=== PATIENT | male | born 1940 ===

== ENCOUNTER 2016-11-18 21:20 | Inpatient (IN) | payer MEDICARE ==
[2016-11-18] MEDS ORDERED: Sodium Chloride 0.9% 1,000 ML IV ONE (23:01)
[2016-11-19 00:38] LABS: RBC URINE 127 /hpf (0-3); URINE BACTERIA MANY (<OCC); URINE BILIRUBIN NEGATIVE (NEGATIVE); URINE BLOOD 3+ (NEGATIVE); URINE COLOR Yellow (YELLOW); URINE GLUCOSE (UA) NORMAL (Normal); URINE KETONE NEGATIVE (NEGATIVE); URINE LEUKOCYTE ESTERASE 3+ Leu/uL (Negative); URINE PROTEIN 2+ mg/dL (NEGATIVE); URINE UROBILINOGEN NORMAL mg/dL (0.2-1.0); WBC URINE 317 /hpf (0-5)
[2016-11-19 01:11] LABS: BASO # 0.1 K/uL (0.0-0.2); BASO % 1.2 % (0.0-2.0); EOS # 0.3 K/uL (0.0-0.7); EOS % 3.1 % (0.0-4.0); HEMATOCRIT 27.3 % (35.0-51.0); LYMPH # 2.1 K/uL (1.0-4.3); LYMPH % 19.4 % (20.0-40.0); MEAN CELL VOLUME 82.7 fL (80.0-94.0); MEAN CORPUSCULAR HEMOGLOBIN 27.2 pg (27.0-31.0); MEAN CORPUSCULAR HGB CONC 32.8 g/dL (33.0-37.0); MEAN PLATELET VOLUME 7.1 fL (7.2-11.7); MONO # 0.7 K/uL (0.0-0.8); MONO % 6.5 % (0.0-10.0); RED CELL DISTRIBUTION WIDTH 14.2 % (11.5-14.5); WHITE BLOOD COUNT 10.7 K/uL (4.8-10.8)
[2016-11-19 01:28] LABS: POTASSIUM 4.3 mmol/L (3.6-5.2)
[2016-11-19 01:31] LABS: ALB/GLOB RATIO 0.7 (1.0-2.1); BILIRUBIN,TOTAL 0.5 mg/dL (0.2-1.3); CALCIUM 8.2 mg/dl (8.6-10.4); TOTAL PROTEIN 7.1 g/dL (6.3-8.3)
[2016-11-19] MEDS ORDERED: cefTRIAXone IV 1 gm in Dextros 50 ML IVPB STA (02:20)
[2016-11-19] MEDS ORDERED: cefTRIAXone IV 1 gm in Dextros 50 ML IVPB ONE (02:41)
--- NOTE | 2016-11-19 03:30 | C.PDOC ---
History Of Present Illness Pt had urinary retention in [place] and suprapubic catheter was placed. Pt has been having fevers according to family. He is demented and tries to pull out the catheter. Time Seen by Provider: 11/18/16 22:49 Chief Complaint (Nursing): Male Genitourinary History Per: Patient, Family History/Exam Limitations: clinical condition, language barrier, other (Dementia) Onset/Duration Of Symptoms: Days (about 1 week) Current Symptoms Are (Timing): Still Present Severity: Moderate Quality Of Discomfort: Unable To Describe Associated Symptoms: Fever, Urinary Symptoms Alleviating Factors: None Recent travel outside of the [place]: Yes Additional History Per: Prior Records Past Medical History Reviewed: Historical Data, Nursing Documentation, Vital Signs Vital Signs: Last Vital Signs Temp 98.3 F 11/18/16 21:28 Pulse 90 11/18/16 21:28 Resp 18 11/18/16 21:28 BP 113/70 11/18/16 21:28 Pulse Ox 98 11/18/16 21:28 - Medical History PMH: Alzheimer's Disease, Benign Prostatic Hyperplasia Other Surgeries: Suprapubic catheter. Family History: States: Unknown Family Hx - Social History Hx Alcohol Use: No Hx Substance Use: No - Immunization History Hx Tetanus Toxoid Vaccination: No Hx Influenza Vaccination: No Hx Pneumococcal Vaccination: No Review Of Systems Review Of Systems: ROS cannot be obtained secondary to pt's inabilty to answer questions. Physical Exam - Physical Exam Appears: Agitated, Confused Skin: Normal Color, Warm, Dry Head: Atraumatic, Normacephalic Eye(s): bilateral: PERRL Neck: Normal ROM, Supple Cardiovascular: Rhythm Regular Respiratory: Normal Breath Sounds, No Accessory Muscle Use Gastrointestinal/Abdominal: Soft, No Distention, Other (Suprapubic catheter in place) Male Genital: No Testicular Swelling, No Scrotal Swelling Extremity: Normal ROM Neurological/Psych: Inappropriate Response To Command, Other (Moving all extremities) ED Course And Treatment - Laboratory Results Result Diagrams: 11/19/16 01:08 11/19/16 01:08 Lab Interpretation: Abnormal Interpretation Of Abnormal: UTI O2 Sat by Pulse Oximetry: 98 Pulse Ox Interpretation: Normal Progress Note: Pt would not let us evaluate or treat him due to his dementia. Pt had to be sedated in order to be jeff to evaluate and treat him. Progress - Interventions Interventions:: Observation, Intravenous fluid - Medications Administered Intravenous: Other (Abx) - Data Reviewed Data Reviewed: Lab, Old records - Patient Status Patient status: Partially improved - Continuity of Care Discussed patient case with:: Patient, Family-HIPPA compliant, ED Nurse, On- call PMD-pt unassigned - Patient Plan Patient Plan: Admission Disposition Discussed With : Fareed Kaufman Comment: He accepted pt on hospitalist service. Doctor Will See Patient In The: Hospital Counseled Patient/Family Regarding: Studies Performed, Diagnosis - Disposition Disposition: HOSPITALIZED Disposition Time: 03:31 Condition: FAIR - Clinical Impression Clinical Impression: Complicated urinary tract infection, Dementia
--- NOTE | 2016-11-19 04:49 | CP.PCM.HP ---
History of Present Illness - History of Present Illness History of Present Illness: CC: Urinary retention HPI: Patient is a 76 year old male, with PMHx of Alzheimer's Disease and urinary retention, presents to the emergency department with his family for worsening dementia and urinary retention. Pt is confused at baseline according to family, and they provided the history. Patient was living with family in the [facility] [place]. He saw a physician for worsening retention, who placed a suprapubic catheter one week ago, as cabrera catheter could not be inserted. Due to pts dementia, he continually attempted to pull the catheter out. The physician in the [place], informed the family that if the pt removed the catheter "the patient would ." Because of this the family began to tie the patient's arms to his bed, gave Haldol nightly, and booked the first flight [place] the [place]. Family also reports "the patient felt warm at home" but did not measure temperature. The family denies problem with drainage of catheter, but the note color of urine has darkened over the last few days. They deny appearance of armando blood at any point. ROS unobtainable due to pts dementia. PMHx: Alzheimer's disease, Urinary retention PSHx: unknown Meds: Quetiapine fumarate, Haldol, Cefazolin, Omeprazole, Lactulose Allergies: ASA Fam Hx: unknown Present on Admission - Present on Admission Any Indicators Present on Admission: No Review of Systems - Review of Systems Systems not reviewed;Unavailable: Language Barrier Review of Systems: Pt demented unable to ask ROS Past Patient History - Past Social History Smoking Status: Former Smoker - NEUROLOGICAL Hx Alzheimer's Disease: Yes - GENITOURINARY/GYNECOLOGICAL Other/Comment: Urethral Constriction, Urinary retention - PSYCHIATRIC Hx Substance Use: No - SURGICAL HISTORY Hx Surgeries: No Meds Allergies/Adverse Reactions: Allergies Allergy/AdvReac Type Severity Reaction Status Date / Time aspirin Allergy Verified 11/18/16 21:32 Physical Exam - Constitutional Appears: Agitated, Confused - Head Exam Head Exam: ATRAUMATIC, NORMOCEPHALIC - Eye Exam Eye Exam: EOMI Pupil Exam: PERRL - ENT Exam ENT Exam: Mucous Membranes Moist - Neck Exam Neck exam: Positive for: Normal Inspection - Respiratory Exam Respiratory Exam: Clear to Auscultation Bilateral. absent: Accessory Muscle Use - Cardiovascular Exam Cardiovascular Exam: REGULAR RHYTHM, +S1, +S2 - GI/Abdominal Exam GI & Abdominal Exam: Normal Bowel Sounds, Soft - Exam Exam: NORMAL INSPECTION. absent: Scrotal Swelling, Testicular Tenderness Additional comments: suprapubic catheter placed in DR - Extremities Exam Extremities exam: Positive for: normal inspection. Negative for: pedal edema Additional comments: can move all extremities - Neurological Exam Neurological exam: Alert, Altered - Psychiatric Exam Psychiatric exam: Normal Affect - Skin Skin Exam: Normal Color, Warm Results - Vital Signs Recent Vital Signs: Last Vital Signs Temp 98.3 F 11/18/16 21:28 Pulse 90 11/18/16 21:28 Resp 18 11/18/16 21:28 BP 113/70 11/18/16 21:28 Pulse Ox 98 11/19/16 03:32 - Labs Result Diagrams: 11/19/16 01:08 11/19/16 01:08 Assessment & Plan - Assessment and Plan (Free Text) Assessment: Complicated UTI Hx of urinary retention Suprapubic catheter placed in [facility] Urology consult: Dr. Dunlap, help appreciated - f.u reccs UA: 2+ protein, 3+ blood, LE: 3+, WBC 317, RBC 127, Bacteria Many Rocephin 1gm IV Daily Alzheimer's Disease Family reports baseline is confused Not oriented to person/place/time Seroquel 50mg PO BID f/u B12, TSH, free T4 Psych consult: Dr. Cuenca, help appreciated - f/u reccs Anemia H/H: 05/25.3 f/u AM labs Prophylaxis SCDs Heparin 5000u Q8H Protonix 40mg IV daily
[2016-11-19 08:35] LABS: THYROID STIMULATING HORMONE 2.32 mIU/L (0.46-4.68)
[2016-11-19] MEDS: cefTRIAXone IV 1 gm in Dextros 50 ML IVPB SCH (10:57)
[2016-11-19] MEDS: QUEtiapine 50 mg XR Tab PO SCH ×2 (11:10→18:00)
--- NOTE | 2016-11-19 16:56 | PCM.PSYCH ---
Initial Psychiatric Evaluation - Initial Psychiatric Evaluation Type of Admission: Voluntary Legal Status: Capacity Chief Complaint (in patient's own words): 'amy' History of Present Illness and Precipitating Events: This is a 76 years old male, who lives with his , and currently unemployed, was escorted to the ED with irritable, agitated and disorganized behavior. Today patient was consulted because of Alzheimer's dementia. As per the staff, patient remained demented, delusional and disorganized. As per the patient has a long history of Alzheimer's dementia. Since few months he has been getting worse. He has stopped taking, he does not recognize any family members and he does not eat. As per the , he is not ambulatory and was refusing to urinate, she got concerned and escorted him to the hospital to get help. During evaluation patient remained delusional, demented and forgetful. He stares but does not speak. As per the staff he was very agitated, irritable and physically aggressive. He was pulling out the catheter and IV lines so they put soft gloves on his hands and medicated him. Past medical history Current Medications: Active Medications Generic Name Dose Route Start Last Admin Trade Name Freq PRN Reason Stop Dose Admin Heparin Sodium (Porcine) 5,000 units 11/19/16 06:00 11/19/16 14:25 Heparin SC 5,000 units Q8 [facility] Administration Ceftriaxone Sodium 50 mls @ 100 mls/hr 11/19/16 10:00 11/19/16 10:57 Rocephin Iv 1 Gm Duplex IVPB 100 mls/hr DAILY [facility] Administration Influenza Virus Vaccine 45 mcg 11/21/16 10:00 Afluria IM 11/21/16 10:01 .ONCE ONE Lorazepam 1 mg 11/19/16 10:33 11/19/16 11:10 Ativan IVP 1 mg Q2H PRN Administration Agitation Pantoprazole Sodium 40 mg 11/19/16 10:00 11/19/16 10:57 Protonix Inj IVP 40 mg DAILY [facility] Administration Pneumococcal Polyvalent Vaccine 0.5 ml 11/21/16 10:00 Pneumovax 23 Vaccine IM 11/21/16 10:01 .ONCE ONE Quetiapine Fumarate 50 mg 11/19/16 10:00 11/19/16 11:10 Seroquel Xr PO 50 mg BID [facility] Administration Past Psychiatric History - Past Psychiatric History Previous Treatment History: None Pertinent Medical Hx (Current Medical&Sleep Prob, Allergies): Allergies Allergy/AdvReac Type Severity Reaction Status Date / Time aspirin Allergy Verified 11/18/16 21:32 Haldol 10 drop PO BID 11/18/16 Lactulose 30 ml PO Q12H 11/18/16 Omeprazole 40 mg PO DAILY 11/18/16 Quetiapine Fumarate [Quetiapine Fumarate ER] 50 mg PO BID 11/18/16 ceFAZolin [Ancef] 500 mg PO Q8H 11/18/16 Review of Systems - Review of Systems All systems: reviewed and no additional remarkable complaints except - Psychiatric Psychiatric: Anxiety, Irritability, Paranoia Mental Status Examination - Personal Presentation Personal Presentation: Looks older than stated age - Affect Affect: Broad - Motor Activity Motor Activity: Psychomotor Agitation - Reliability in Providing Information Reliability in Providing Information: Poor, due to cognitve impairment - Speech Speech: Disorganized - Mood Mood: Anxious - Formal Thought Process Formal Thought Process: Loosening of associations - Hallucinations/Delusions Delusions: Persecution - Obsessions/Compulsions Obsessions: No Compulsions: No - Cognitive Functions Orientation: Person Sensorium: Other (Demented) Attention/Concentration: Easily distracted Estimate of Intelligence: Below average Judgement: Imparied, as evidence by: Poor judgement, Imparied, as evidence by: Lack of insight into illness - Risk Risk: Diminished functioning - Strength & Assets Inventory Strength & Assets Inventory: Family support DSM 5 DX - DSM 5 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 Start Seroquel 50 mg by mouth twice a day Ativan 0.5 mg by mouth every 6 hours when necessary Benadryl 25 mg by mouth every 6 hours when necessary - Smoking Cessation Smoking Cessation Initiated: No
--- NOTE | 2016-11-19 21:26 | CP.PCM.PN ---
<Kathleen Edwards - Last Filed: 11/19/16 21:24> Subjective - Date & Time of Evaluation Date of Evaluation: 11/19/16 Time of Evaluation: 10:45 - Subjective Subjective: Internal medicine progress note for Dr. Chaudhry- Kathleen Edwards, PGY-1 Pt S & E at bedside. Spouse at bedside Pt agitated, attempting to pull off clothing/suprapubic catheter. Per spouse- pt at baseline, demented. Spouse asking for Dr. Bhatt to be consulted as he has previous treated the pt. No other events reported. Objective - Vital Signs/Intake and Output Vital Signs (last 24 hours): Temp Pulse Resp BP Pulse Ox 97.7 F 73 20 122/76 99 11/19/16 16:41 11/19/16 16:41 11/19/16 16:41 11/19/16 16:41 11/19/16 16:41 Intake and Output: 11/19/16 11/20/16 18:59 06:59 Intake Total 250 Output Total 800 Balance -550 - Medications Medications: Current Medications Heparin Sodium (Porcine) (Heparin) 5,000 units SC Q8 [facility] Last Admin: 11/19/16 14:25 Dose: 5,000 units Ceftriaxone Sodium (Rocephin Iv 1 Gm Duplex) 50 mls @ 100 mls/hr IVPB DAILY [facility] Last Admin: 11/19/16 10:57 Dose: 100 mls/hr Influenza Virus Vaccine (Afluria) 45 mcg IM .ONCE ONE Stop: 11/21/16 10:01 Lorazepam (Ativan) 1 mg IVP Q6 PRN PRN Reason: Agitation Pantoprazole Sodium (Protonix Inj) 40 mg IVP DAILY [facility] Last Admin: 11/19/16 10:57 Dose: 40 mg Pneumococcal Polyvalent Vaccine (Pneumovax 23 Vaccine) 0.5 ml IM .ONCE ONE Stop: 11/21/16 10:01 Quetiapine Fumarate (Seroquel Xr) 50 mg PO BID [facility] Last Admin: 11/19/16 18:00 Dose: Not Given - Constitutional Appears: Non-toxic, No Acute Distress - Head Exam Head Exam: ATRAUMATIC, NORMAL INSPECTION, NORMOCEPHALIC - Eye Exam Eye Exam: EOMI, Normal appearance, PERRL Pupil Exam: NORMAL ACCOMODATION, PERRL - ENT Exam ENT Exam: Mucous Membranes Moist, Normal Exam - Neck Exam Neck Exam: Full ROM, Normal Inspection - Respiratory Exam Respiratory Exam: Clear to Ausculation Bilateral, NORMAL BREATHING PATTERN. absent: Rales, Rhonchi, Wheezes - Cardiovascular Exam Cardiovascular Exam: REGULAR RHYTHM, +S1, +S2 - GI/Abdominal Exam GI & Abdominal Exam: Soft, Normal Bowel Sounds. absent: Distended, Firm, Guarding, Rigid, Tenderness Additional comments: Suprapubic catheter in place, draining well - output into bag clear, yellow - Extremities Exam Extremities Exam: Full ROM, Normal Inspection - Neurological Exam Neurological Exam: Alert, Awake. absent: Oriented x3 - Psychiatric Exam Psychiatric exam: Agitated Additional comments: Non verbal - Skin Skin Exam: Dry, Intact, Normal Color, Warm Assessment and Plan - Assessment and Plan (Free Text) Assessment: Complicated UTI Hx of urinary retention Suprapubic catheter placed in [facility] UA: 2+ protein, 3+ blood, LE: 3+, WBC 317, RBC 127, Bacteria Many Rocephin 1gm IV Daily Uro consulted- Miller (as per pt family) Fu blood cxr FU urine cxr Alzheimer's Disease Family reports baseline is confused Not oriented to person/place/time Seroquel 50mg PO BID Vit B12 TSH FT4 Agitation Ativan 1mg Q2H PRN Psych consult- Bang Anemia H/H: 05/25.3 GI/DVT ppx SCDs Heparin 5000u Q8H Protonix 40mg IV daily Dispo: Regular diet FU uro recs FU psych recs Keep mittens in place to prohibit pt from removing catheter DW attending <Pastor Chaudhry H - Last Filed: 11/20/16 07:44> Objective - Vital Signs/Intake and Output Vital Signs (last 24 hours): Temp Pulse Resp BP Pulse Ox 97.8 F 76 20 138/74 98 11/20/16 07:33 11/20/16 07:33 11/20/16 07:33 11/20/16 07:33 11/20/16 07:33 - Medications Medications: Current Medications Heparin Sodium (Porcine) (Heparin) 5,000 units SC Q8 [facility] Last Admin: 11/20/16 05:32 Dose: 5,000 units Ceftriaxone Sodium (Rocephin Iv 1 Gm Duplex) 50 mls @ 100 mls/hr IVPB DAILY [facility] Last Admin: 11/19/16 10:57 Dose: 100 mls/hr Influenza Virus Vaccine (Afluria) 45 mcg IM .ONCE ONE Stop: 11/21/16 10:01 Lorazepam (Ativan) 1 mg IVP Q6 PRN PRN Reason: Agitation Last Admin: 11/20/16 05:32 Dose: 1 mg Pantoprazole Sodium (Protonix Inj) 40 mg IVP DAILY [facility] Last Admin: 11/19/16 10:57 Dose: 40 mg Pneumococcal Polyvalent Vaccine (Pneumovax 23 Vaccine) 0.5 ml IM .ONCE ONE Stop: 11/21/16 10:01 Quetiapine Fumarate (Seroquel Xr) 50 mg PO BID [facility] Last Admin: 11/19/16 18:00 Dose: Not Given Attending/Attestation - Attestation I have personally seen and examined this patient.: Yes I have fully participated in the care of the patient.: Yes I have reviewed all pertinent clinical information, including history, physical exam and plan: Yes Notes (Text): 11/20/16 07:40 Medical Attending: Patient was seen and examined by me. Agree with the above note by the resident. The patient was awake, however appeared to be quite agitated and was temporarily being restrained by a family member in the room. In the ER the patient required haldol and ativan due to the agitation. The family was really concerned about the patient pulling out the suprapubic cather due to agitation. When we saw the patient the suprapubic cather appeared to be functioning. We placed the patient in hand mittens. Also need psychiatry evaluation. His family member gave us a card of their urologist Dr Bhatt and we will try to reach out to him. thank you Pastor Chaudhry
--- NOTE | 2016-11-20 01:19 | CP.PCM.PN ---
<Pastor Cunningham - Last Filed: 11/20/16 09:00> Subjective - Date & Time of Evaluation Date of Evaluation: 11/20/16 Time of Evaluation: 00:40 - Subjective Subjective: Internal medicine progress note for Dr. Chaudhry Patient seen and examined at bedside. No overnight events per nursing. Pt resting comfortably, supra-pubic catheter in place. Pt with dementia, at baseline. Spouse requested for Dr. Bhatt to be consulted as he has previous treated the pt. No other events reported. Objective - Vital Signs/Intake and Output Vital Signs (last 24 hours): Temp Pulse Resp BP Pulse Ox 98.5 F 76 20 141/79 98 11/20/16 00:00 11/20/16 00:00 11/20/16 00:00 11/20/16 00:00 11/20/16 00:00 Intake and Output: 11/19/16 11/20/16 18:59 06:59 Intake Total 250 Output Total 800 Balance -550 - Medications Medications: Current Medications Heparin Sodium (Porcine) (Heparin) 5,000 units SC Q8 [facility] Last Admin: 11/19/16 21:47 Dose: 5,000 units Ceftriaxone Sodium (Rocephin Iv 1 Gm Duplex) 50 mls @ 100 mls/hr IVPB DAILY [facility] Last Admin: 11/19/16 10:57 Dose: 100 mls/hr Influenza Virus Vaccine (Afluria) 45 mcg IM .ONCE ONE Stop: 11/21/16 10:01 Lorazepam (Ativan) 1 mg IVP Q6 PRN PRN Reason: Agitation Last Admin: 11/19/16 21:32 Dose: 1 mg Pantoprazole Sodium (Protonix Inj) 40 mg IVP DAILY [facility] Last Admin: 11/19/16 10:57 Dose: 40 mg Pneumococcal Polyvalent Vaccine (Pneumovax 23 Vaccine) 0.5 ml IM .ONCE ONE Stop: 11/21/16 10:01 Quetiapine Fumarate (Seroquel Xr) 50 mg PO BID [facility] Last Admin: 11/19/16 18:00 Dose: Not Given - Additional Findings Additional findings: - Constitutional Appears: Non-toxic, No Acute Distress - Head Exam Head Exam: ATRAUMATIC, NORMAL INSPECTION, NORMOCEPHALIC - Eye Exam Eye Exam: EOMI, Normal appearance, PERRL Pupil Exam: NORMAL ACCOMODATION, PERRL - ENT Exam ENT Exam: Mucous Membranes Moist, Normal Exam - Neck Exam Neck Exam: Full ROM, Normal Inspection - Respiratory Exam Respiratory Exam: Clear to Ausculation Bilateral, NORMAL BREATHING PATTERN. absent: Rales, Rhonchi, Wheezes - Cardiovascular Exam Cardiovascular Exam: REGULAR RHYTHM, +S1, +S2 - GI/Abdominal Exam GI & Abdominal Exam: Soft, Normal Bowel Sounds. absent: Distended, Firm, Guarding, Rigid, Tenderness Additional comments: Suprapubic catheter in place, draining well - output into bag clear, yellow - Extremities Exam Extremities Exam: Full ROM, Normal Inspection - Neurological Exam Neurological Exam: Alert, Awake. absent: Oriented x3 - Psychiatric Exam Psychiatric exam: absent: Agitated Additional comments: Non verbal - Skin Skin Exam: Dry, Intact, Normal Color, Warm Assessment and Plan - Assessment and Plan (Free Text) Assessment: Complicated UTI 11/20: urine culture - negative Hx of urinary retention Suprapubic catheter placed in [facility] UA: 2+ protein, 3+ blood, LE: 3+, WBC 317, RBC 127, Bacteria Many Rocephin 1gm IV Daily Uro consulted- Miller (as per pt family) Fu blood cxr Alzheimer's Disease 11/20: patient at baseline, less agitated today Family reports baseline is confused Not oriented to person/place/time Seroquel 50mg PO BID Vit B12 TSH FT4 Agitation Ativan 1mg Q2H PRN Psych consult- Bang Anemia H/H: 05/25.3 GI/DVT ppx SCDs Heparin 5000u Q8H Protonix 40mg IV daily Dispo: Regular diet FU uro recs FU psych recs Keep mittens in place to prohibit pt from removing catheter <Pastor Chaudhry H - Last Filed: 11/20/16 13:52> Objective - Vital Signs/Intake and Output Vital Signs (last 24 hours): Temp Pulse Resp BP Pulse Ox 97.8 F 76 20 138/74 98 11/20/16 07:33 11/20/16 07:33 11/20/16 07:33 11/20/16 07:33 11/20/16 07:33 - Medications Medications: Current Medications Heparin Sodium (Porcine) (Heparin) 5,000 units SC Q8 [facility] Last Admin: 11/20/16 13:43 Dose: 5,000 units Ceftriaxone Sodium (Rocephin Iv 1 Gm Duplex) 50 mls @ 100 mls/hr IVPB DAILY [facility] Last Admin: 11/20/16 10:26 Dose: 100 mls/hr Influenza Virus Vaccine (Afluria) 45 mcg IM .ONCE ONE Stop: 11/21/16 10:01 Lorazepam (Ativan) 1 mg IVP Q6 PRN PRN Reason: Agitation Last Admin: 11/20/16 05:32 Dose: 1 mg Pantoprazole Sodium (Protonix Inj) 40 mg IVP DAILY [facility] Last Admin: 11/20/16 10:01 Dose: 40 mg Pneumococcal Polyvalent Vaccine (Pneumovax 23 Vaccine) 0.5 ml IM .ONCE ONE Stop: 11/21/16 10:01 Quetiapine Fumarate (Seroquel Xr) 50 mg PO BID [facility] Last Admin: 11/20/16 10:16 Dose: 50 mg - Labs Labs: 11/20/16 08:30 11/20/16 08:30 Attending/Attestation - Attestation I have personally seen and examined this patient.: Yes I have fully participated in the care of the patient.: Yes I have reviewed all pertinent clinical information, including history, physical exam and plan: Yes Notes (Text): 11/20/16 13:51 Medical Attending: Patient was seen and examined by me. Agree with the above note by the resident. At this time pending urology evaluation, the supra pubic cathter appears to be functional at this time. Patient is still having episodes of agitation, however this morning did not require sedation thank you Pastor Chaudhry
[2016-11-20 08:45] LABS: BASO # 0.1 K/uL (0.0-0.2); BASO % 0.7 % (0.0-2.0); EOS # 0.2 K/uL (0.0-0.7); EOS % 2.4 % (0.0-4.0); HEMATOCRIT 30.8 % (35.0-51.0); LYMPH # 2.3 K/uL (1.0-4.3); LYMPH % 23.5 % (20.0-40.0); MEAN CELL VOLUME 84.1 fL (80.0-94.0); MEAN CORPUSCULAR HEMOGLOBIN 27.8 pg (27.0-31.0); MEAN CORPUSCULAR HGB CONC 33.1 g/dL (33.0-37.0); MEAN PLATELET VOLUME 6.9 fL (7.2-11.7); MONO # 0.6 K/uL (0.0-0.8); MONO % 5.9 % (0.0-10.0); RED CELL DISTRIBUTION WIDTH 14.1 % (11.5-14.5); WHITE BLOOD COUNT 9.8 K/uL (4.8-10.8)
[2016-11-20 09:04] LABS: POTASSIUM 4.5 mmol/L (3.6-5.2)
[2016-11-20 09:06] LABS: ALB/GLOB RATIO 0.8 (1.0-2.1); BILIRUBIN,TOTAL 0.7 mg/dL (0.2-1.3); TOTAL PROTEIN 7.5 g/dL (6.3-8.3)
[2016-11-20 09:07] LABS: CALCIUM 8.3 mg/dl (8.6-10.4)
[2016-11-20] MEDS: QUEtiapine 50 mg XR Tab PO SCH ×2 (10:16→17:55)
[2016-11-20] MEDS: cefTRIAXone IV 1 gm in Dextros 50 ML IVPB SCH (10:26)
--- NOTE | 2016-11-20 22:34 | CON ---
DATE: 11/20/2016 Urology consultation requested by Dr. Kaufman. Urology consultation filled by Dr. Isabel Dunlap. REASON FOR CONSULTATION: Urinary retention. The patient is a 76-year-old male with urinary retention. The patient is in otherwise fair health. The patient has history of urinary retention. The patient has history of dementia. The history is as obtained from the . The patient is unable to provide further history due to hi s dementia. The patient was in [place]. He developed urinary retention last week. The patient had a cystostomy tube inserted. The patient subsequently returned to [place]. He was admitted to the hospital last night with mario alberto bility to urinate, and with obstruction of the cystostomy tube. Subsequently, the cystostomy tube has been noted to be draining well. There has been no recent fever or rigors. No hematuria. There has been no apparent pain today. PHYSICAL EXAMINATION: The patient is well-developed, well-nourished, elderly male. The patient is awake and alert. The wi fe is in attendance. ABDOMEN: Soft, nontender, nondistended. Dressing is dry and intact. Urine is clear via the Gilbert catheter cystostomy tube. GENITALIA: Without inflammation. IMPRESSION: Urinary retention. Etiology of urinary retention may be due to detrusor muscle hypofunction, and/or bladder outlet obstr uction. Also possible is possible mental status changes contributing to the patient's retention. RECOMMENDATIONS AND PLAN: Maintain cystostomy tube to straight drainage. Possible further evaluatio n to follow, including cystogram, cystometrogram, and cystoscopy. Further therapy to follow according to the patient's clinical course, as well as results of above. Consider urine culture. Serum PSA. Thank you for recommending the patient for urology consultation. Isabel Dunlap MD cc: [id number] TT: 11/20/2016 22:33:45 Confirmation # [id number] Dictation # [id number] el
--- NOTE | 2016-11-21 00:08 | CP.PCM.PN ---
<Pastor Cunningham - Last Filed: 11/21/16 00:08> Subjective - Date & Time of Evaluation Date of Evaluation: 11/21/16 Time of Evaluation: 00:10 - Subjective Subjective: Internal medicine progress note for Dr. Chaudhry Patient seen and examined at bedside. No overnight events per nursing. Pt resting comfortably, supra-pubic catheter in place. Pt with dementia, at baseline. Spouse requested for Dr. Bhatt to be consulted as he has previous treated the pt. No other events reported. Objective - Vital Signs/Intake and Output Vital Signs (last 24 hours): Temp Pulse Resp BP Pulse Ox 97.6 F 78 18 128/77 98 11/20/16 23:45 11/20/16 23:45 11/20/16 23:45 11/20/16 23:45 11/20/16 23:45 Intake and Output: 11/20/16 11/21/16 18:59 06:59 Intake Total 750 400 Output Total 2400 600 Balance -1650 -200 - Medications Medications: Current Medications Heparin Sodium (Porcine) (Heparin) 5,[address] [facility] Last Admin: 11/20/16 21:34 Dose: 5,000 units Ceftriaxone Sodium (Rocephin Iv 1 Gm Duplex) 50 mls @ 100 mls/hr IVPB DAILY [facility] Last Admin: 11/20/16 10:26 Dose: 100 mls/hr Influenza Virus Vaccine (Afluria) 45 mcg IM .ONCE ONE Stop: 11/21/16 10:01 Lorazepam (Ativan) 1 mg IVP Q6 PRN PRN Reason: Agitation Last Admin: 11/20/16 13:55 Dose: 1 mg Pantoprazole Sodium (Protonix Inj) [address] [facility] Last Admin: 11/20/16 10:01 Dose: 40 mg Pneumococcal Polyvalent Vaccine (Pneumovax 23 Vaccine) 0.5 ml IM .ONCE ONE Stop: 11/21/16 10:01 Quetiapine Fumarate (Seroquel Xr) [address] [facility] Last Admin: 11/20/16 17:55 Dose: 50 mg - Labs Labs: 11/20/16 08:30 11/20/16 08:30 - Additional Findings Additional findings: - Constitutional Appears: Non-toxic, No Acute Distress - Head Exam Head Exam: ATRAUMATIC, NORMAL INSPECTION, NORMOCEPHALIC - Eye Exam Eye Exam: EOMI, Normal appearance, PERRL Pupil Exam: NORMAL ACCOMODATION, PERRL - ENT Exam ENT Exam: Mucous Membranes Moist, Normal Exam - Neck Exam Neck Exam: Full ROM, Normal Inspection - Respiratory Exam Respiratory Exam: Clear to Ausculation Bilateral, NORMAL BREATHING PATTERN. absent: Rales, Rhonchi, Wheezes - Cardiovascular Exam Cardiovascular Exam: REGULAR RHYTHM, +S1, +S2 - GI/Abdominal Exam GI & Abdominal Exam: Soft, Normal Bowel Sounds. absent: Distended, Firm, Guarding, Rigid, Tenderness Additional comments: Suprapubic catheter in place, draining well - output into bag clear, yellow - Extremities Exam Extremities Exam: Full ROM, Normal Inspection - Neurological Exam Neurological Exam: Alert, Awake. absent: Oriented x3 - Psychiatric Exam Psychiatric exam: absent: Agitated Additional comments: Non verbal - Skin Skin Exam: Dry, Intact, Normal Color, Warm Assessment and Plan - Assessment and Plan (Free Text) Assessment: Complicated UTI 11/20: urine culture - negative Hx of urinary retention Suprapubic catheter placed in [facility] [place] UA: 2+ protein, 3+ blood, LE: 3+, WBC 317, RBC 127, Bacteria Many Rocephin 1gm IV Daily Uro consulted- Miller (as per pt family) Fu blood cxr Alzheimer's Disease 11/20: patient at baseline, less agitated today Family reports baseline is confused Not oriented to person/place/time Seroquel 50mg PO BID Vit B12 TSH FT4 Agitation Ativan 1mg Q2H PRN Psych consult- Bang Anemia H/H: 05/25.3 GI/DVT ppx SCDs Heparin 5000u Q8H Protonix 40mg IV daily Dispo: Regular diet FU uro recs FU psych recs Keep mittens in place to prohibit pt from removing catheter <Pastor Chaudhry H - Last Filed: 11/21/16 10:46> Objective - Vital Signs/Intake and Output Vital Signs (last 24 hours): Temp Pulse Resp BP Pulse Ox 97.4 F L 89 20 131/83 97 11/21/16 08:00 11/21/16 08:00 11/21/16 08:00 11/21/16 08:00 11/21/16 08:00 Intake and Output: 11/21/16 11/21/16 06:59 18:59 Intake Total 400 Output Total 900 Balance -500 - Medications Medications: Current Medications Heparin Sodium (Porcine) (Heparin) 5,[address] [facility] Last Admin: 11/21/16 05:48 Dose: 5,000 units Ceftriaxone Sodium (Rocephin Iv 1 Gm Duplex) 50 mls @ 100 mls/hr IVPB DAILY [facility] Last Admin: 11/21/16 09:52 Dose: 100 mls/hr Lorazepam (Ativan) 1 mg IVP Q6 PRN PRN Reason: Agitation Last Admin: 11/21/16 07:50 Dose: 1 mg Pantoprazole Sodium (Protonix Inj) [address] [facility] Last Admin: 11/21/16 09:45 Dose: 40 mg Quetiapine Fumarate (Seroquel Xr) [address] [facility] Last Admin: 11/21/16 09:47 Dose: 50 mg - Labs Labs: 11/21/16 06:08 11/21/16 06:08 Attending/Attestation - Attestation I have personally seen and examined this patient.: Yes I have fully participated in the care of the patient.: Yes I have reviewed all pertinent clinical information, including history, physical exam and plan: Yes Notes (Text): Medical Attending: Patient was seen and examined by me. Agree with the above note by the resident. The patient was out of bed to chair, family was present at bedside. The supra- pubic catheter at this moment appears to be functioning at the moment. He is awake, alert - however not cooperative. Per nursing ativan has been successful at keeping the patient from becoming to agitated. He continues to wear mittens to prevent him from pulling at the supra pubic catheter. thank you Pastor Chaudhry
[2016-11-21 06:22] LABS: BASO # 0.1 K/uL (0.0-0.2); BASO % 0.7 % (0.0-2.0); EOS # 0.3 K/uL (0.0-0.7); EOS % 3.5 % (0.0-4.0); HEMATOCRIT 29.1 % (35.0-51.0); LYMPH # 2.6 K/uL (1.0-4.3); LYMPH % 28.3 % (20.0-40.0); MEAN CELL VOLUME 83.5 fL (80.0-94.0); MEAN CORPUSCULAR HEMOGLOBIN 28.1 pg (27.0-31.0); MEAN CORPUSCULAR HGB CONC 33.6 g/dL (33.0-37.0); MEAN PLATELET VOLUME 6.9 fL (7.2-11.7); MONO # 0.7 K/uL (0.0-0.8); MONO % 7.7 % (0.0-10.0); RED CELL DISTRIBUTION WIDTH 14.3 % (11.5-14.5); WHITE BLOOD COUNT 9.2 K/uL (4.8-10.8)
[2016-11-21 06:32] LABS: POTASSIUM 4.4 mmol/L (3.6-5.2)
[2016-11-21 06:34] LABS: ALB/GLOB RATIO 0.8 (1.0-2.1); BILIRUBIN,TOTAL 0.6 mg/dL (0.2-1.3); TOTAL PROTEIN 6.8 g/dL (6.3-8.3)
[2016-11-21 06:35] LABS: CALCIUM 8.2 mg/dl (8.6-10.4)
[2016-11-21] MEDS: QUEtiapine 50 mg XR Tab PO SCH ×2 (09:47→17:04)
[2016-11-21] MEDS: cefTRIAXone IV 1 gm in Dextros 50 ML IVPB SCH (09:52)
[2016-11-21] MEDS ORDERED: Influenza Virus Vaccine 45 mcg/0.5 ml Syr IM ONE (10:00)
[2016-11-21] MEDS ORDERED: Pneumococcal 23-Valent Vaccine IM ONE (10:00)
--- NOTE | 2016-11-21 12:12 | PCM.PYCHPN ---
Psychiatric Progress Note - Psychiatric Progress Note Patient seen today, length of contact: 15 min with pt and family Patient Chief Complaint: pt is not oriented to time or place but does respond to his name. Pt's hands are wrapped to prevent him from pulling on his suprapubic catheter his daughter is feeding him and his appetite appears good. Dr. 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 pt is on seroquel 50 mg po bid Medical Problems: dementia chronic urinary retention Diagnostic Results: reviewed DSM 5 Symptoms Update: pt is calm with his family around him Medication Change: No Medical Record Reviewed: Yes Mental Status Examination - Cognitive Function Memory: Impaired, Recent, Remote Attention: Poor Concentration: Poor Association: Loose Fund of Knowledge: Poor - Mood Mood: Anxious - Affect Affect: Broad, Constricted - Formal Thought Process Formal Thought Process: Loosening of associations Goal/Treatment Plan - Goal/Treatment Plan Need for Continued Stay: Discharge may exacerbated symptoms, Severe functional impairment Progress Toward Problem(s) and Goals/Treatment Plan: family is caring for pt the valternative is a snf - Smoking Cessation Smoking Cessation Initiated: No
--- NOTE | 2016-11-21 15:58 | CON ---
DATE: 11/21/2016 BRIEF HISTORY: The patient is a 76-year-old male who has had Alzheimer dementia for at leas t 5 years who presents to [facility] ER in acute urinary retention with an indwelling suprapubic tube which was placed 1 week ago in the [place]. The patient is currently admitted for t reatment of a complicated UTI. The patient is currently relatively comfortable and the suprapubic tu be is currently draining aruna urine well. The patient was previously seen by Dr. Isabel link, 11/20/2016, and noted the patient has acute urinary retention, possibly secondary to a weak nae dder muscle versus outlet obstruction from prostatic hypertrophy versus possible urinary retention se condary to his senile dementia and neurologic condition. The patient, prior to 1 week ago, according to the family, was voiding aruna urine well without any complaints on no BPH medications. He sudden ly went into acute urinary retention and attempts to insert Gilbert catheter in the [facility] [place] met with resistance and they put in a suprapubic tube. PHYSICAL EXAMINATION: VITAL SIGNS: Today, on 11/21/2016, showed a temperature of 97.4, pulse was 89, blood pressure is 131 /83 and respiratory rate is 20, and O2 saturation on room air is 97%. GENERAL: The patient is a well-developed, well-nourished male. He is alert but he is not o riented. He is unable to give any type of history. History was mainly obtained by the nursing staff and the family and Dr. Dunlap's report. Limited physical exam today; patient would not permit a re ctal examination. ABDOMEN: Currently soft, not distended or tender. No CVA tenderness. No suprapubic tenderness. He does have an indwelling what appears to be a 16-Algerian suprapubic tube draining aruna urine well. GENITALIA: He is not circumcised with a normal glans and meatus without any rashes or lesions visual ized. Testes are down bilaterally, nontender, without any masses. RECTAL: Could not be performed at this time secondary to the patient's agitation and attempts to do a rectal examination LABORATORY EVALUATION: Today, 11/21/2016, shows a CBC with a WBC count of 9.2, hemoglobin of 9.8, he matocrit of 29.1 with a platelet count of 484,000. His chem profile shows a sodium of 142, potassium 4.4, chloride 100, CO2 of 30, BUN and creatinine of 25 and 1.7, with a GFR of 39 indicating chronic kidney disease stage III. His random glucose was 82. Calcium was 8.2. His AST was 43 and ALT was 3 6. Alkaline phosphatase was 58. TSH was 2.32 on 11/19/2016. Urinalysis on 11/19/2016: The color w as yellow, clarity was hazy, pH was 6.0, specific gravity 1.017, protein was 2+, glucose was normal, ketones were negative, blood was 3+, nitrite was negative, leukocyte esterase was 3+, there were 317 WBCs, 127 RBCs and many bacteria per high-power field indicating a possible urinary tract infection. The urine culture on 11/18/2016 showed no growth. Blood cultures also on 11/18/2016 showed no growt h. DIAGNOSTIC IMPRESSION: 1. Acute urinary retention. 2. Urinary tract infection. 3. Chronic kidney disease, stage III. PLAN: To obtain a renal ultrasound and bladder ultrasound with a KUB. The family was advised that t he patient has to maintain the suprapubic tube without change for at least 1 month. After 1 month to 6 weeks, the catheter can be changed and then the patient can be reevaluated with a possible cystosc opy as an outpatient. Currently, the patient does not require any BPH medications at this time secon lupe to the indwelling suprapubic tube, which the patient may have to keep permanently. Possible fariha jonathan for outlet obstruction was also discussed with the family in the future. Jaylen Bhatt MD cc: [id number] TT: 11/21/2016 15:58:22 Confirmation # [id number] Dictation # [id number] mn
[2016-11-22] MEDS: cefTRIAXone IV 1 gm in Dextros 50 ML IVPB SCH (09:11)
[2016-11-22] MEDS: QUEtiapine 50 mg XR Tab PO SCH ×2 (09:14→17:28)
--- NOTE | 2016-11-22 13:37 | RAD ---
PROCEDURE: Single-view abdomen HISTORY: position spt COMPARISON: None TECHNIQUE: Standard protocol for this study/examination. FINDINGS: Negative study for obstruction or free air No renal calculi identified No osseous abnormalities of consequence IMPRESSION: No significant or acute findings to account for/ related to the clinical presentation.
[2016-11-22 14:20] LABS: BASO # 0.1 K/uL (0.0-0.2); BASO % 0.9 % (0.0-2.0); EOS # 0.3 K/uL (0.0-0.7); EOS % 2.9 % (0.0-4.0); HEMATOCRIT 30.5 % (35.0-51.0); LYMPH # 2.6 K/uL (1.0-4.3); MEAN CELL VOLUME 83.3 fL (80.0-94.0); MEAN CORPUSCULAR HEMOGLOBIN 27.5 pg (27.0-31.0); MONO # 0.7 K/uL (0.0-0.8); MONO % 7.3 % (0.0-10.0); NRBC % 0.1 % (0.0-2.0); RED CELL DISTRIBUTION WIDTH 14.2 % (11.5-14.5); WHITE BLOOD COUNT 9.3 K/uL (4.8-10.8)
[2016-11-22 14:26] LABS: POTASSIUM 4.4 mmol/L (3.6-5.2)
[2016-11-22 14:28] LABS: ALB/GLOB RATIO 0.8 (1.0-2.1); BILIRUBIN,TOTAL 0.3 mg/dL (0.2-1.3); TOTAL PROTEIN 7.2 g/dL (6.3-8.3)
[2016-11-22 14:29] LABS: CALCIUM 8.4 mg/dl (8.6-10.4)
--- NOTE | 2016-11-22 14:29 | US ---
HISTORY: ckd 3, spt position COMPARISON: None. TECHNIQUE: Sonographic evaluation of the retroperitoneum. FINDINGS: RIGHT KIDNEY:: Measures 9.7 x 5 x 9.8cm. Mild hydronephrosis. Incidental finding(s): Simple cyst projects off superior pole of the right kidney 2.5 x 2.9.. LEFT KIDNEY:: Measures 3.6 x 3.8 x 4.4cm. Markedly atrophic, echogenic left kidney. Mild left hydronephrosis. AORTA:: Unremarkable. IVC:: Unremarkable. BLADDER:: Normal wall thickness. Ureteral jets visualized. OTHER FINDINGS: None . IMPRESSION: 1. Mild hydronephrosis bilaterally. 2. Atrophic echogenic left kidney. 3. Incidental finding(s): Cholelithiasis. No sonographic evidence of acute cholecystitis.
--- NOTE | 2016-11-22 16:02 | CP.PCM.PN ---
<Kathleen Edwards - Last Filed: 11/22/16 16:03> Subjective - Date & Time of Evaluation Date of Evaluation: 11/22/16 Time of Evaluation: 09:15 - Subjective Subjective: Internal medicine progress note for Dr. Shaikh- Kathleen Edwards, PGY-1 Pt S & E at bedside. Pt at baseline - agitated, trying to get mittens off. No other events overnight. Objective - Vital Signs/Intake and Output Vital Signs (last 24 hours): Temp Pulse Resp BP Pulse Ox 97.6 F 86 20 122/78 97 11/22/16 08:00 11/22/16 08:00 11/22/16 08:00 11/22/16 08:00 11/22/16 08:00 Intake and Output: 11/22/16 11/22/16 06:59 18:59 Intake Total 200 Output Total 1350 400 Balance -1150 -400 - Medications Medications: Current Medications Ceftriaxone Sodium (Rocephin Iv 1 Gm Duplex) 50 mls @ 100 mls/hr IVPB DAILY [facility] Last Admin: 11/22/16 09:11 Dose: 100 mls/hr Lorazepam (Ativan) 1 mg IVP Q6 PRN PRN Reason: Agitation Last Admin: 11/22/16 06:59 Dose: 1 mg Pantoprazole Sodium (Protonix Inj) 40 mg IVP DAILY [facility] Last Admin: 11/22/16 09:11 Dose: 40 mg Quetiapine Fumarate (Seroquel Xr) 50 mg PO BID [facility] Last Admin: 11/22/16 09:14 Dose: 50 mg - Labs Labs: 11/22/16 14:05 11/22/16 14:05 - Constitutional Appears: Non-toxic, No Acute Distress - Head Exam Head Exam: ATRAUMATIC, NORMAL INSPECTION, NORMOCEPHALIC - Eye Exam Eye Exam: EOMI, Normal appearance, PERRL Pupil Exam: NORMAL ACCOMODATION, PERRL - ENT Exam ENT Exam: Mucous Membranes Moist, Normal Exam - Neck Exam Neck Exam: Full ROM, Normal Inspection - Respiratory Exam Respiratory Exam: Clear to Ausculation Bilateral, NORMAL BREATHING PATTERN. absent: Rales, Rhonchi, Wheezes - Cardiovascular Exam Cardiovascular Exam: REGULAR RHYTHM, +S1, +S2 - GI/Abdominal Exam GI & Abdominal Exam: Soft, Normal Bowel Sounds. absent: Tenderness Additional comments: Suprapubic catheter in place, good urine output to collection bag - Extremities Exam Extremities Exam: Normal Inspection. absent: Pedal Edema, Tenderness - Back Exam Back Exam: NORMAL INSPECTION - Neurological Exam Neurological Exam: Alert, Awake. absent: Oriented x3 Additional comments: demented - Psychiatric Exam Psychiatric exam: Agitated Additional comments: non verbal - Skin Skin Exam: Dry, Intact, Normal Color, Warm Assessment and Plan - Assessment and Plan (Free Text) Assessment: Complicated UTI Hx of urinary retention Suprapubic catheter placed in [facility] UA: 2+ protein, 3+ blood, LE: 3+, WBC 317, RBC 127, Bacteria Many Rocephin 1gm IV Daily Blood cxr neg x 3 days urine cxr neg Uro consulted- Miller - to keep suprapubic catheter in place for 4 weeks, then to FU outpatient for re-evaluation with Dr. Bhatt Renal U/S w/Mild hydronephrosis bilaterally. 2. Atrophic echogenic left kidney. 3. Incidental finding(s): Cholelithiasis. No sonographic evidence of acute cholecystitis.w/o contrast KUB neg FU CT abdomen Alzheimer's Disease 11/20: patient at baseline, less agitated today Family reports baseline is confused Not oriented to person/place/time Seroquel 50mg PO BID Vit B12 348 TSH 2.32 FT4 1.37 Agitation Ativan 1mg Q6H PRN Psych consult- Bang Anemia H/H: 10.7/30.5 GI/DVT ppx SCDs Heparin 5000u Q8H Protonix 40mg IV daily Dispo: Regular diet Keep mittens in place to prohibit pt from removing catheter SW for discharge planning to [facility] attending <Aleksandar Shaikh - Last Filed: 11/23/16 10:27> Objective - Vital Signs/Intake and Output Vital Signs (last 24 hours): Temp Pulse Resp BP Pulse Ox 97.5 F L 84 20 115/78 97 11/23/16 07:00 11/23/16 07:00 11/23/16 07:00 11/23/16 07:00 11/23/16 07:00 Intake and Output: 11/23/16 11/23/16 06:59 18:59 Intake Total 300 Output Total 800 Balance -500 - Medications Medications: Current Medications Ceftriaxone Sodium (Rocephin Iv 1 Gm Duplex) 50 mls @ 100 mls/hr IVPB DAILY [facility] Last Admin: 11/22/16 09:11 Dose: 100 mls/hr Lorazepam (Ativan) 1 mg IVP Q6 PRN PRN Reason: Agitation Last Admin: 11/23/16 07:16 Dose: 1 mg Pantoprazole Sodium (Protonix Inj) 40 mg IVP DAILY [facility] Last Admin: 11/22/16 09:11 Dose: 40 mg Quetiapine Fumarate (Seroquel Xr) 50 mg PO BID [facility] Last Admin: 11/22/16 17:28 Dose: 50 mg - Labs Labs: 11/23/16 07:48 11/23/16 07:48 Attending/Attestation - Attestation I have personally seen and examined this patient.: Yes I have fully participated in the care of the patient.: Yes I have reviewed all pertinent clinical information, including history, physical exam and plan: Yes Notes (Text): Patient with severe dementia admitted with urinary retention in the setting of recent suprapubic cystostomy tube being placed after inability to place cabrera; being followed by urology; cystostomy tube currently with good UO; Renal/bladder US showing mild bilateral hydronephrosis; CT abd/pelvis ordered for further assessment; Presumed UTI with UA showing pyuria and bacteria but culture negative; on ceftriaxone, continue for now; Dispo: 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
[2016-11-22 23:42] VITALS: RESP 20
[2016-11-23 07:59] LABS: BASO # 0.1 K/uL (0.0-0.2); BASO % 0.6 % (0.0-2.0); EOS # 0.3 K/uL (0.0-0.7); EOS % 3.3 % (0.0-4.0); LYMPH # 2.6 K/uL (1.0-4.3); LYMPH % 30.6 % (20.0-40.0); MEAN CELL VOLUME 82.8 fL (80.0-94.0); MEAN CORPUSCULAR HEMOGLOBIN 27.9 pg (27.0-31.0); MEAN CORPUSCULAR HGB CONC 33.7 g/dL (33.0-37.0); MEAN PLATELET VOLUME 6.8 fL (7.2-11.7); MONO # 0.7 K/uL (0.0-0.8); MONO % 8.4 % (0.0-10.0); RED CELL DISTRIBUTION WIDTH 14.4 % (11.5-14.5); WHITE BLOOD COUNT 8.6 K/uL (4.8-10.8)
[2016-11-23 08:12] LABS: POTASSIUM 4.2 mmol/L (3.6-5.2)
[2016-11-23 08:15] LABS: ALB/GLOB RATIO 0.8 (1.0-2.1); BILIRUBIN,TOTAL 0.5 mg/dL (0.2-1.3); CALCIUM 8.7 mg/dl (8.6-10.4); TOTAL PROTEIN 7.2 g/dL (6.3-8.3)
--- NOTE | 2016-11-23 09:39 | CP.PCM.PN ---
<Kathleen Edwards - Last Filed: 11/23/16 15:19> Subjective - Date & Time of Evaluation Date of Evaluation: 11/23/16 Time of Evaluation: 07:45 - Subjective Subjective: Internal medicine progress note for Hospitalist service- Kathleen Edwards, PGY-1 Pt S & E at bedside. Pt currently resting comfortably, informed that pt was recently sedated due to agitation/trying to get out of bed/trying to remove mittens. No other events as per nursing. Objective - Vital Signs/Intake and Output Vital Signs (last 24 hours): Temp Pulse Resp BP Pulse Ox 97.5 F L 84 20 115/78 97 11/23/16 07:00 11/23/16 07:00 11/23/16 07:00 11/23/16 07:00 11/23/16 07:00 Intake and Output: 11/23/16 11/23/16 06:59 18:59 Intake Total 300 Output Total 800 Balance -500 - Medications Medications: Current Medications Ceftriaxone Sodium (Rocephin Iv 1 Gm Duplex) 50 mls @ 100 mls/hr IVPB DAILY [facility] Last Admin: 11/22/16 09:11 Dose: 100 mls/hr Lorazepam (Ativan) 1 mg IVP Q6 PRN PRN Reason: Agitation Last Admin: 11/23/16 07:16 Dose: 1 mg Pantoprazole Sodium (Protonix Inj) 40 mg IVP DAILY [facility] Last Admin: 11/22/16 09:11 Dose: 40 mg Quetiapine Fumarate (Seroquel Xr) 50 mg PO BID [facility] Last Admin: 11/22/16 17:28 Dose: 50 mg - Labs Labs: 11/23/16 07:48 11/23/16 07:48 - Constitutional Appears: Non-toxic, No Acute Distress, Older Than Stated Age - Head Exam Head Exam: ATRAUMATIC, NORMAL INSPECTION, NORMOCEPHALIC - Eye Exam Eye Exam: EOMI, Normal appearance, PERRL Pupil Exam: NORMAL ACCOMODATION, PERRL - ENT Exam ENT Exam: Mucous Membranes Moist, Normal Exam - Neck Exam Neck Exam: Full ROM, Normal Inspection - Respiratory Exam Respiratory Exam: Clear to Ausculation Bilateral, NORMAL BREATHING PATTERN. absent: Rales, Rhonchi, Wheezes, Stridor - Cardiovascular Exam Cardiovascular Exam: REGULAR RHYTHM, +S1, +S2 - GI/Abdominal Exam GI & Abdominal Exam: Soft, Normal Bowel Sounds. absent: Tenderness Additional comments: suprapubic catheter in place, good urine output into bag- clear light yellow, no drainage noted from catheter insertion site - Extremities Exam Extremities Exam: Normal Inspection. absent: Pedal Edema - Neurological Exam Neurological Exam: absent: Alert, Awake, Oriented x3 Additional comments: demented, sedated - Psychiatric Exam Additional comments: non verbal - Skin Skin Exam: Dry, Intact, Normal Color Assessment and Plan - Assessment and Plan (Free Text) Assessment: Complicated UTI- resolved Hx of urinary retention Suprapubic catheter placed in [facility] UA: 2+ protein, 3+ blood, LE: 3+, WBC 317, RBC 127, Bacteria Many Rocephin 1gm IV Daily Blood cxr neg x 3 days urine cxr neg Uro consulted- Miller - to keep suprapubic catheter in place for 4 weeks, then to FU outpatient for re-evaluation with Dr. Bhatt Renal U/S w/Mild hydronephrosis bilaterally. 2. Atrophic echogenic left kidney. 3. Incidental finding(s): Cholelithiasis. No sonographic evidence of acute cholecystitis.w/o contrast KUB neg CT abdomen read= Diffusely thickened bladder wall. Suprapubic cystostomy. High attenuation material within bladder lumen may reflect blood. Please correlate. Possible abscess medial left gluteal region, only partially included in this examination. Overlying cellulitis suspected. Please correlate. Enlarged prostate. Small amount of free air identified in far lower right abdomen. Uncertain significance. Must suspect hello viscus perforation. No generalized free air seen elsewhere. Diffusely thickened gallbladder wall consistent with cholelithiasis as demonstrated on ultrasound examination of the same date. Atrophic left kidney with minimal left hydronephrosis. Probable exophytic cyst arising from the upper pole right kidney. Low-density lesion lateral left hepatic lobe and inferior right hepatic lobe, nonspecific. FU upright Abdominal X-ray FU Abdominal U/S Benadryl PRN agitation for studies Alzheimer's Disease 11/23: Pt sedated/resting comfortably 11/22: Per family at bedside - pt at baseline- is agitated generally 11/20: patient at baseline, less agitated today Family reports baseline is confused Not oriented to person/place/time Seroquel 50mg PO BID Vit B12 348 TSH 2.32 FT4 1.37 Agitation Ativan 1mg Q6H PRN Psych consult- Bang Anemia H/H: 10. Monitor GI/DVT ppx SCDs Heparin 5000u Q8H Protonix 40mg IV daily Dispo: Regular diet Keep mittens in place to prohibit pt from removing catheter SW for discharge planning to [facility] Abdominal studies for free air If studies neg- will d/c to facility DW attending <Danielle Grimm V - Last Filed: 11/23/16 18:19> Objective - Vital Signs/Intake and Output Vital Signs (last 24 hours): Temp Pulse Resp BP Pulse Ox 97.8 F 105 H 20 156/96 H 99 11/23/16 16:00 11/23/16 16:00 11/23/16 16:00 11/23/16 16:00 11/23/16 16:00 Intake and Output: 11/23/16 11/23/16 06:59 18:59 Intake Total 300 170 Output Total 800 800 Balance -500 -630 - Medications Medications: Current Medications Ceftriaxone Sodium (Rocephin Iv 1 Gm Duplex) 50 mls @ 100 mls/hr IVPB DAILY [facility] Last Admin: 11/23/16 10:45 Dose: 100 mls/hr Lorazepam (Ativan) 1 mg IVP Q6 PRN PRN Reason: Agitation Last Admin: 11/23/16 14:47 Dose: 1 mg Pantoprazole Sodium (Protonix Inj) 40 mg IVP DAILY [facility] Last Admin: 11/23/16 10:44 Dose: 40 mg Quetiapine Fumarate (Seroquel Xr) 50 mg PO BID [facility] Last Admin: 11/23/16 10:44 Dose: 50 mg - Labs Labs: 11/23/16 07:48 11/23/16 07:48 Attending/Attestation - Attestation I have personally seen and examined this patient.: Yes I have fully participated in the care of the patient.: Yes I have reviewed all pertinent clinical information, including history, physical exam and plan: Yes Notes (Text): Patient seen, examined and case discussed with day-time resident. Patient seen at bedside with history of severe Alzheimer's dementia, hx of urinary retention s/p suprapubic catheter placed during hospitalization. Patient completed CT Abdomen yesterday; per official report noted amongst other findings "Small amount of free air identified in the far lower right abdomen". Patient completed erect Chest xray today: no perforation; no free air noted. Patient had bladder US completed yesterday wherein gallbladder was evaluated; spoke with telecasting technician, patient has cholelithiasis, no CBD dilation (0.3) and thickness of the gallbladder but no sonographic Ulloa's sign. On exam, patient is quite agitated, does not appear to be guarding, sitting up right, punching staff etc, calmed mildly with Ativan PRN. Will get general surgery evaluation given the CT finding; on my exam, evaluated patient's sacral and gluteal region, there is no signs of erythema, fluctuance noted and no sacral decub appreciated; assisted by the CP to evaluate. Will follow-up with urology to confirm plan in light of Ct findings Discussed with case management, patient has placement for [facility], but in light of CT findings will discuss with general surgery.
[2016-11-23] MEDS: QUEtiapine 50 mg XR Tab PO SCH ×2 (10:44→20:07)
[2016-11-23] MEDS: cefTRIAXone IV 1 gm in Dextros 50 ML IVPB SCH (10:45)
--- NOTE | 2016-11-23 12:00 | CT ---
PROCEDURE: CT Abdomen and Pelvis without intravenous contrast HISTORY: assessment for bladder tumor COMPARISON: None. TECHNIQUE: Without contrast.. Contrast Dose: 0 Radiation dose: Total exam DLP = 858.45 mGy-cm. FINDINGS: LOWER THORAX: No infiltrate. 11 mm rounded soft tissue nodule, pleural-based, posterior right lower lobe, with central nodular calcification, most likely calcified granuloma. Incidental lipoma of the inferior right pectoralis muscle, 2.6 x 9.8 cm. LIVER: Normal size and contour. 1.8 cm low-density mass in the left hepatic lobe, nonspecific. 9 mm low-density lesion inferior right hepatic lobe, nonspecific. No other hepatic mass. No biliary ductal dilatation. GALLBLADDER AND BILE DUCTS: Diffusely thickened gallbladder wall. No calcified gallstones identified. Nonspecific finding. Please note that ultrasound examination of the same date demonstrated cholelithiasis. PANCREAS: Unremarkable. No gross lesion or ductal dilatation. SPLEEN: Curvilinear calcification in the mid spleen of uncertain significance. This may reflect calcification in the wall of the splenic mass. Consider correlation with ultrasound examination. ADRENALS: Unremarkable. No mass. KIDNEYS AND URETERS: Moderately atrophic left kidney. 3.1 x 02.0 cm fluid density mass exophytic, upper pole right kidney. This corresponds to a simple cyst identified on ultrasound examination of the same date. No left renal mass. Minimal left hydronephrosis. VASCULATURE: Unremarkable. No aortic aneurysm. BOWEL: Moderate retained feces. No bowel obstruction. APPENDIX: Not identified. No secondary findings to suggest acute appendicitis. PERITONEUM: No ascites. Please note that there are several bubbles of free gas in the far right pelvis, just above the level of the pubic symphysis uncertain etiology. This is seen on series 3, image 135. Concerning for perforation of hollow viscus. Although the patient does have a suprapubic cystostomy, there is no air seen about the cystostomy entry point. LYMPH NODES: Unremarkable. No enlarged lymph nodes. BLADDER: Diffusely thick-walled bladder. The bladder wall measures approximately 1.5 cm in thickness. Suprapubic cystostomy noted with balloon inflated within bladder lumen. High attenuation material within bladder lumen may reflect blood or neoplasm. REPRODUCTIVE: Enlarged prostate, up to 6.2 cm transversely. BONES: No fracture. Severe degenerative disc disease L5-S1. OTHER FINDINGS: Possible abscess left medial gluteal region, 3.1 cm diameter, with surrounding inflammatory change, cutaneous thickening and central low attenuation. This is only partially included in this examination and may be larger than described. Further evaluation is suggested. IMPRESSION: Diffusely thickened bladder wall. Suprapubic cystostomy. High attenuation material within bladder lumen may reflect blood. Please correlate. Possible abscess medial left gluteal region, only partially included in this examination. Overlying cellulitis suspected. Please correlate. Enlarged prostate. Small amount of free air identified in far lower right abdomen. Uncertain significance. Must suspect hello viscus perforation. No generalized free air seen elsewhere. Diffusely thickened gallbladder wall consistent with cholelithiasis as demonstrated on ultrasound examination of the same date. Atrophic left kidney with minimal left hydronephrosis. Probable exophytic cyst arising from the upper pole right kidney. Low-density lesion lateral left hepatic lobe and inferior right hepatic lobe, nonspecific. Preliminary interpretation of this examination was reported by [facility] at 8 p.m. on 11/22/2016. There is discordance of this report with the preliminary interpretation,, specifically in regard to a small amount of free air identified in the right pelvis. Uncertain significance. The additional finding of free intraperitoneal air in the right pelvis was discussed by telephone with the patient's nurse, Becky, at 11:50 a.m. on 11/23/2016.
[2016-11-23] MEDS ORDERED: DiphenhydrAMINE 50 mg/ml Inj IVP STA (15:32)
--- NOTE | 2016-11-23 19:25 | CP.PCM.CON ---
History of Present Illness - History of Present Illness History of Present Illness: Surgery: Dr. Steele Reason for consult: abnormal CT scan findings, intraperitoneal pelvic air HPI: Patient is a 76 y/o male, with advanced dementia unable to give history. History obtained from EMR. Patient recently moved from the [facility] with family about 1 week ago. According to prior documentation patient was experiencing urinary retention and a cabrera was unable to be placed. The doctor in the [place] placed a suprapubic catheter. About 1 week after catheter was placed [place] and was found to have chills and feel warm. This prompted evaluation of patient at hospital. Patient underwent CT scan and the scan showed a bladder mass, with placement of suprapubic catheter and small air bubble in the right pelvis (see full report). PMH: urinary retention, advanced Alzheimer's dementia PSH: suprapubic catheter Review of Systems - Review of Systems Systems not reviewed;Unavailable: Dementia, Altered Mental Status Past Patient History - Past Medical History & Family History Past Medical History?: Yes - Past Social History Smoking Status: Former Smoker - CARDIAC Hx Cardiac Disorders: No - PULMONARY Hx Respiratory Disorders: No - NEUROLOGICAL Hx Alzheimer's Disease: Yes - HEENT Hx HEENT Problems: No - RENAL Hx Chronic Kidney Disease: No - ENDOCRINE/METABOLIC Hx Endocrine Disorders: No - HEMATOLOGICAL/ONCOLOGICAL Hx Blood Disorders: No - INTEGUMENTARY Hx Dermatological Problems: No - MUSCULOSKELETAL/RHEUMATOLOGICAL Hx Arthritis: Yes (BACK; KNEE) - GASTROINTESTINAL Hx Gastrointestinal Disorders: No - GENITOURINARY/GYNECOLOGICAL Other/Comment: Urethral Constriction, Urinary retention - PSYCHIATRIC Hx Substance Use: No - SURGICAL HISTORY Hx Surgeries: No - ANESTHESIA Hx Anesthesia: Yes Hx Anesthesia Reactions: No Hx Malignant Hyperthermia: No Has any member of the family had a problem w/ anesthesia?: No Meds Allergies/Adverse Reactions: Allergies Allergy/AdvReac Type Severity Reaction Status Date / Time aspirin Allergy Verified 11/18/16 21:32 - Medications Medications: Current Medications Ceftriaxone Sodium (Rocephin Iv 1 Gm Duplex) 50 mls @ 100 mls/hr IVPB DAILY [facility] Last Admin: 11/23/16 10:45 Dose: 100 mls/hr Lorazepam (Ativan) 1 mg IVP Q6 PRN PRN Reason: Agitation Last Admin: 11/23/16 14:47 Dose: 1 mg Pantoprazole Sodium (Protonix Inj) 40 mg IVP DAILY [facility] Last Admin: 11/23/16 10:44 Dose: 40 mg Quetiapine Fumarate (Seroquel Xr) 50 mg PO BID [facility] Last Admin: 11/23/16 10:44 Dose: 50 mg Saccharomyces Boulardii (Florastor) 250 mg PO BID [facility] Physical Exam - Constitutional Appears: Non-toxic, No Acute Distress, Cachectic, Chronically Ill - Head Exam Head Exam: ATRAUMATIC, NORMOCEPHALIC - ENT Exam ENT Exam: Mucous Membranes Moist - Respiratory Exam Respiratory Exam: NORMAL BREATHING PATTERN. absent: Respiratory Distress - Cardiovascular Exam Cardiovascular Exam: REGULAR RHYTHM. absent: Tachycardia - GI/Abdominal Exam GI & Abdominal Exam: Soft. absent: Distended, Guarding, Rebound, Rigid, Tenderness Additional comments: suprapubic catheter placed - Extremities Exam Extremities exam: Positive for: normal inspection. Negative for: calf tenderness - Neurological Exam Neurological exam: Alert, Altered - Skin Skin Exam: Dry, Warm Results - Vital Signs Recent Vital Signs: Last Vital Signs Temp 97.8 F 11/23/16 16:00 Pulse 105 H 11/23/16 16:00 Resp 20 11/23/16 16:00 BP 156/96 H 11/23/16 16:00 Pulse Ox 99 11/23/16 16:00 - Labs Result Diagrams: 11/23/16 07:48 11/23/16 07:48 Labs: Laboratory Results - last 24 hr 11/23/16 07:48 WBC 8.6 RBC 3.74 L Hgb 10.4 L Hct 31.0 L MCV 82.8 MCH 27.9 MCHC 33.7 RDW 14.4 Plt Count 433 H MPV 6.8 L Neut % (Auto) 57.1 Lymph % (Auto) 30.6 Glynn % (Auto) 8.4 Eos % (Auto) 3.3 Baso % (Auto) 0.6 Neut # 4.9 Lymph # 2.6 Glynn # 0.7 Eos # 0.3 Baso # 0.1 Sodium 140 Potassium 4.2 Chloride 100 Carbon Dioxide 28 Anion Gap 17 BUN 23 H Creatinine 1.5 Est GFR ( Amer) 55 Est GFR (Non-Af Amer) 45 Random Glucose 89 Calcium 8.7 Total Bilirubin 0.5 AST 40 ALT 30 Alkaline Phosphatase 61 Total Protein 7.2 Albumin 3.3 L Globulin 3.9 Albumin/Globulin Ratio 0.8 L Assessment & Plan - Assessment and Plan (Free Text) Assessment: 76 y/o male w/ CT findings of small pocket of intraperitoneal air in right pelvis s/p suprapubic catheter placement Plan: -air most likely incidental finding 2/2 suprapubic catheter placement -no free air visualized on abd upright film -serial abdominal exams -recommend bowel regimen for constipation -no acute surgical intervention at this time -d/w Dr. Cedric REEVESgino PGY1
[2016-11-23 23:36] VITALS: O2SAT 97
[2016-11-24 08:40] LABS: BASO # 0.1 K/uL (0.0-0.2); BASO % 0.8 % (0.0-2.0); EOS # 0.2 K/uL (0.0-0.7); EOS % 1.7 % (0.0-4.0); HEMATOCRIT 31.8 % (35.0-51.0); LYMPH # 1.9 K/uL (1.0-4.3); LYMPH % 19.4 % (20.0-40.0); MEAN CELL VOLUME 83.2 fL (80.0-94.0); MEAN CORPUSCULAR HEMOGLOBIN 27.3 pg (27.0-31.0); MEAN CORPUSCULAR HGB CONC 32.9 g/dL (33.0-37.0); MONO # 0.8 K/uL (0.0-0.8); MONO % 8.2 % (0.0-10.0); RED CELL DISTRIBUTION WIDTH 14.5 % (11.5-14.5); WHITE BLOOD COUNT 9.6 K/uL (4.8-10.8)
[2016-11-24 08:43] LABS: POTASSIUM 4.4 mmol/L (3.6-5.2)
[2016-11-24 08:44] VITALS: BP 114/69; PULSE 87; TEMP 98
[2016-11-24 08:46] LABS: ALB/GLOB RATIO 0.9 (1.0-2.1); BILIRUBIN,TOTAL 0.6 mg/dL (0.2-1.3); TOTAL PROTEIN 7.8 g/dL (6.3-8.3)
[2016-11-24 08:47] LABS: CALCIUM 9.1 mg/dl (8.6-10.4)
--- NOTE | 2016-11-24 09:59 | CP.PCM.PN ---
Subjective - Date & Time of Evaluation Date of Evaluation: 11/24/16 Time of Evaluation: 09:58 - Subjective Subjective: Surgery: Dr. Steele Patient remains confused at baseline. Awake and conversant w/o complaints. Per nursing no acute events overnight. Patient denies abdominal pain. Objective - Vital Signs/Intake and Output Vital Signs (last 24 hours): Temp Pulse Resp BP Pulse Ox 98 F 87 20 114/69 97 11/24/16 08:00 11/24/16 08:00 11/24/16 08:00 11/24/16 08:00 11/24/16 08:00 Intake and Output: 11/24/16 11/24/16 06:59 18:59 Intake Total 100 Output Total 800 Balance -700 - Medications Medications: Current Medications Lorazepam (Ativan) 1 mg IVP Q6 PRN PRN Reason: Agitation Last Admin: 11/24/16 09:19 Dose: 1 mg Pantoprazole Sodium (Protonix Inj) 40 mg IVP DAILY [facility] Last Admin: 11/23/16 10:44 Dose: 40 mg Quetiapine Fumarate (Seroquel Xr) 50 mg PO BID [facility] Last Admin: 11/23/16 20:07 Dose: 50 mg Saccharomyces Boulardii (Florastor) 250 mg PO BID [facility] - Labs Labs: 11/24/16 08:30 11/24/16 08:30 - Constitutional Appears: Non-toxic, No Acute Distress, Cachectic - Head Exam Head Exam: ATRAUMATIC, NORMOCEPHALIC - Eye Exam Eye Exam: EOMI - ENT Exam ENT Exam: Mucous Membranes Moist - Respiratory Exam Respiratory Exam: NORMAL BREATHING PATTERN. absent: Respiratory Distress - Cardiovascular Exam Cardiovascular Exam: REGULAR RHYTHM. absent: Tachycardia - GI/Abdominal Exam GI & Abdominal Exam: Soft. absent: Distended, Guarding, Rigid, Tenderness, Rebound Additional comments: supra-pubic catheter Assessment and Plan - Assessment and Plan (Free Text) Assessment: 76 y/o male w/ CT findings of small pocket of intraperitoneal air in right pelvis s/p suprapubic catheter placement Plan: -patient remains nontender to abdominal exam -air most likely incidental finding 2/2 suprapubic catheter placement -cont serial abdominal exams -bowel regimen for constipation -no acute surgical intervention at this time -d/w Dr. Steele AKWhite PGY1
[2016-11-24] MEDS ORDERED: Saccharomyces Boulardi 250 mg Cap PO SCH (10:00)
--- NOTE | 2016-11-24 10:04 | CP.PCM.DIS ---
Provider - Provider Date of Admission: 11/19/16 03:32 Attending physician: Fareed Kaufman MD Primary care physician: None Consults: [facility] Time Spent in preparation of Discharge (in minutes): 60 Hospital Course - Lab Results Lab Results: Most Recent Lab Values WBC 9.6 K/uL (4.8-10.8) 11/24/16 08:30 RBC 3.83 Mil/uL (4.40-5.90) L 11/24/16 08:30 Hgb 10.5 g/dL (12.0-18.0) L 11/24/16 08:30 Hct 31.8 % (35.0-51.0) L 11/24/16 08:30 MCV 83.2 fL (80.0-94.0) 11/24/16 08:30 MCH 27.3 pg (27.0-31.0) 11/24/16 08:30 MCHC 32.9 g/dL (33.0-37.0) L 11/24/16 08:30 RDW 14.5 % (11.5-14.5) 11/24/16 08:30 Plt Count 409 K/uL (130-400) H 11/24/16 08:30 MPV 7.0 fL (7.2-11.7) L 11/24/16 08:30 Neut % (Auto) 69.9 % (50.0-75.0) 11/24/16 08:30 Lymph % (Auto) 19.4 % (20.0-40.0) L 11/24/16 08:30 [place] % (Auto) 8.2 % (0.0-10.0) 11/24/16 08:30 Eos % (Auto) 1.7 % (0.0-4.0) 11/24/16 08:30 Baso % (Auto) 0.8 % (0.0-2.0) 11/24/16 08:30 Neut # 6.7 K/uL (1.8-7.0) 11/24/16 08:30 Lymph # 1.9 K/uL (1.0-4.3) 11/24/16 08:30 [place] # 0.8 K/uL (0.0-0.8) 11/24/16 08:30 Eos # 0.2 K/uL (0.0-0.7) 11/24/16 08:30 Baso # 0.1 K/uL (0.0-0.2) 11/24/16 08:30 Sodium 141 mmol/L (132-148) 11/24/16 08:30 Potassium 4.4 mmol/L (3.6-5.2) 11/24/16 08:30 Chloride 98 mmol/L (98-107) 11/24/16 08:30 Carbon Dioxide 30 mmol/L (22-30) 11/24/16 08:30 Anion Gap 17 (10-20) 11/24/16 08:30 BUN 21 mg/dL (9-20) H 11/24/16 08:30 Creatinine 1.4 MG/DL (0.8-1.5) 11/24/16 08:30 Est GFR ( Amer) 59 11/24/16 08:30 Est GFR (Non-Af Amer) 49 11/24/16 08:30 Random Glucose 95 mg/dL (75-110) 11/24/16 08:30 Lactic Acid 1.2 mmol/L (0.7-2.1) 11/19/16 01:08 Calcium 9.1 mg/dl (8.6-10.4) 11/24/16 08:30 Total Bilirubin 0.6 mg/dL (0.2-1.3) 11/24/16 08:30 AST 44 U/L (17-59) 11/24/16 08:30 ALT 33 U/L (21-72) 11/24/16 08:30 Alkaline Phosphatase 67 U/L (38-126) 11/24/16 08:30 Total Protein 7.8 g/dL (6.3-8.3) 11/24/16 08:30 Albumin 3.6 g/dL (3.5-5.0) 11/24/16 08:30 Globulin 4.2 gm/dL (2.2-3.9) H 11/24/16 08:30 Albumin/Globulin Ratio 0.9 (1.0-2.1) L 11/24/16 08:30 Vitamin B12 348 pg/mL (239-931) 11/19/16 07:47 Procalcitonin < 0.05 NG/ML (0.19-0.49) L 11/19/16 07:47 Free T4 1.37 ng/dL (0.78-2.19) 11/19/16 07:47 TSH 3rd Generation 2.32 mIU/L (0.46-4.68) 11/19/16 07:47 Urine Color Yellow (YELLOW) 11/19/16 00:26 Urine Clarity Hazy (Clear) 11/19/16 00:26 Urine pH 6.0 (5.0-8.0) 11/19/16 00:26 Ur Specific Olin 1.017 (1.003-1.030) 11/19/16 00:26 Urine Protein 2+ mg/dL (NEGATIVE) H 11/19/16 00:26 Urine Glucose (UA) Normal mg/dL (Normal) 11/19/16 00:26 Urine Ketones Negative mg/dL (NEGATIVE) 11/19/16 00:26 Urine Blood 3+ (NEGATIVE) H 11/19/16 00:26 Urine Nitrate Negative (NEGATIVE) 11/19/16 00:26 Urine Bilirubin Negative (NEGATIVE) 11/19/16 00:26 Urine Urobilinogen Normal mg/dL (0.2-1.0) 11/19/16 00:26 Ur Leukocyte Esterase 3+ David/uL (Negative) H 11/19/16 00:26 Urine WBC (Auto) 317 /hpf (0-5) H 11/19/16 00:26 Urine RBC (Auto) 127 /hpf (0-3) H 11/19/16 00:26 Urine Bacteria Many (<OCC) H 11/19/16 00:26 - Hospital Course Hospital Course: On hospital admission Patient is a 76 year old male, with PMHx of Alzheimer's Disease and urinary retention, presents to the emergency department with his family for worsening dementia and urinary retention. Pt is confused at baseline according to family, and they provided the history. Patient was living with family in the [place]. He saw a physician for worsening retention, who placed a suprapubic catheter one week ago, as cabrera catheter could not be inserted. Due to pts dementia, he continually attempted to pull the catheter out. [place] in [place], informed the family that if the pt removed the catheter "the patient would ." Because of this the family began to tie the patient's arms to his bed, gave Haldol nightly, and booked the [place] Family also reports "the patient felt warm at home" but did not measure temperature. The family denies problem with drainage of catheter, but the note color of urine has darkened over the last few days. They deny appearance of armando blood at any point. ROS unobtainable due to pts dementia. On hospital course Pt admitted to hospital, started on antiobiotics for UTI, fluid resuscitation, urology consulted for suprapubic [place] due to bladder tumor and urinary obstruction. Lab work was all normal, except slight increase in BUN/Cr- which resolved with fluid resuscitation. Imaging studies were ordered findings are below. Psychiatry saw/evaluated pt for Alzheimer's dementia with recommendations for medication. Pt very agitated during hospital stay requiring multiple imaging studies with concomitent sedation. Urology saw/evaluated the patient with instructions to leave in place until pt followed up as an outpatient in 3 weeks. Patient placed in terminal system operator care facility as per family wishes. Pt medically stable and cleared for discharge to facility as per Dr. Grimm. Imaging findings: Bladder Ultrasounds: Mild hydronephrosis bilaterally. Atrophic echogenic left kidney. Incidental finding(s): Cholelithiasis. No sonographic evidence of acute cholecystitis. CT abdomen/pelvis: Diffusely thickened bladder wall. Suprapubic cystostomy. High attenuation material within bladder lumen may reflect blood. Please correlate. Possible abscess medial left gluteal region, only partially included in this examination. Overlying cellulitis suspected. Please correlate. Enlarged prostate. Small amount of free air identified in far lower right abdomen. Uncertain significance. Must suspect hello viscus perforation. No generalized free air seen elsewhere. Diffusely thickened gallbladder wall consistent with cholelithiasis as demonstrated on ultrasound examination of the same date. Atrophic left kidney with minimal left hydronephrosis. Probable exophytic cyst arising from the upper pole right kidney. Low-density lesion lateral left hepatic lobe and inferior right hepatic lobe, nonspecific. Preliminary interpretation of this examination was reported by [facility] at 8 p.m. on 11/22/2016. There is discordance of this report with the preliminary interpretation,, specifically in regard to a small amount of free air identified in the right pelvis. Uncertain significance. The additional finding of free intraperitoneal air in the right pelvis was discussed by telephone with the patient's nurse, Becky, at 11:50 a.m. on 2016. Upright abdominal x-ray on 11/22: No significant or acute findings to account for/ related to the clinical presentation. Upright abdominal x-ray on 11/23: No free air. No gross bowel obstruction appreciated. Moderate right colonic stool retention. On hospital discharge Patient cleared for [facility] to [facility] as per Dr. Grimm. Please follow up with Dr. Bhatt in [address] Bhatt- the suprapubic catheter is not to be changed before patient is seen and re- evaluated by him. Please follow up with a primary care physician within 1 week after hospitalization. If you do not have a primary care physician, you may establish care with the [facility] in the basement of [facility]. Patient to continue Seroquel and Protonix PO. Please follow up with Dr. Steele for evaluation of gallbladder within 1 month after hospitalization. Please return to hospital if you have a recurrence of symptoms Diagnoses Alzheimer's dementia, complicated UTI, agitation, anemia Medications Pantoprazole [Protonix] 40 mg PO DAILY #30 ect QUEtiapine [Seroquel XR] 50 mg PO BID #60 ter This is a summary of hospital course, please see EMR for further details. - Date & Time of H&P Date of H&P: 11/19/16 Time of H&P: 04:45 Discharge Exam - Head Exam Head Exam: ATRAUMATIC, NORMAL INSPECTION, NORMOCEPHALIC - Eye Exam Eye Exam: EOMI, Normal appearance, PERRL Pupil Exam: NORMAL ACCOMODATION, PERRL - ENT Exam ENT Exam: Mucous Membranes Moist, Normal Exam - Neck Exam Neck exam: Full Rom, Normal Inspection - Respiratory Exam Respiratory Exam: Clear to PA & Lateral, NORMAL BREATHING PATTERN, UNREMARKABLE - Cardiovascular Exam Cardiovascular Exam: REGULAR RHYTHM, +S1, +S2 - GI/Abdominal Exam GI & Abdominal Exam: Normal Bowel Sounds, Soft, Unremarkable. absent: Tenderness Additional comments: Supra pubic catheter in place- draining well into bag, urine output light yellow - Extremities Exam Extremities exam: full ROM, normal inspection - Back Exam Back exam: FULL ROM, NORMAL INSPECTION - Neurological Exam Neurological exam: Alert Additional comments: Pt severely demented - Psychiatric Exam Additional comments: Pt severely demented - Skin Skin Exam: Dry, Intact, Normal Color, Warm Discharge Plan - Discharge Medications Prescriptions: Pantoprazole [Protonix] 40 mg PO DAILY #30 ect QUEtiapine [Seroquel XR] 50 mg PO BID #60 ter - Follow Up Plan Condition: STABLE Disposition: NURSING FACILITY MEDICAID CERT Instructions: Quetiapine (By mouth), Pantoprazole (By mouth), Urinary Tract Infection in Men (DC), Alzheimer Disease (DC), Dementia (GEN), How to Care for Your Suprapubic Catheter (DC) Additional Instructions: Patient cleared for discharge to [facility] as per Dr. Grimm. Please follow up with Dr. Bhatt in [address] Bhatt- the suprapubic catheter is not to be changed before patient is seen and re- evaluated by him. Please follow up with a primary care physician within 1 week after hospitalization. If you do not have a primary care physician, you may establish care with the [facility] in the [facility]. Patient to continue Seroquel and Protonix PO. Please follow up with Dr. Steele for evaluation of gallbladder within 1 month after hospitalization. Please return to hospital if you have a recurrence of symptoms. Referrals: [facility] [Outside] Jaylen Bhatt MD [Staff Provider] -
[2016-11-24] MEDS: QUEtiapine 50 mg XR Tab PO SCH (11:05)
--- NOTE | 2016-11-24 15:43 | RAD ---
HISTORY: R/O Free air COMPARISON: No prior. FINDINGS: BOWEL: Limited ; single upright view. No obstruction appreciated. No free air. Right colon fecal retention moderate BONES: Lumbar spondylosis OTHER FINDINGS: None. IMPRESSION: No free air. No gross bowel obstruction appreciated. Moderate right colonic stool retention.
== END 2016-11-24 14:47 | DRG 57 ==
LOC: C.ER 21:20 → C.3T 11-19 03:32
PROVIDERS: ADMIT Internal Medicine; ATTEND Internal Medicine
DX: G30.9 Alzheimer's disease, unspecified (principal); F02.81 Dementia in other diseases classified elsewhere, unspecified severity, with behavioral disturbance; N13.30 Unspecified hydronephrosis; N39.0 Urinary tract infection, site not specified; D64.9 Anemia, unspecified; R33.8 Other retention of urine; N18.3 Chronic kidney disease, stage 3 (moderate); M17.9 Osteoarthritis of knee, unspecified; M47.9 Spondylosis, unspecified